=== PATIENT | female | born 1960 | race Two or more races ===

== ENCOUNTER 2019-05-04 07:54 | Day surgery (SDC) | payer OTHER ==
[2019-05-04] MEDS ORDERED: PROPOFOL 40 ML (09:10)
== END 2019-05-04 16:38 | disposition home or self-care (01) ==
LOC: GIL 07:54
DX: K64.8 Other hemorrhoids (principal); K29.50 Unspecified chronic gastritis without bleeding; K64.4 Residual hemorrhoidal skin tags; E11.9 Type 2 diabetes mellitus without complications
CPT/HCPCS: 43239; 82962; 88305; 88312